=== PATIENT | male | born 1950 | race Caucasian/White ===

== ENCOUNTER → 2016-08-11 | Outpatient (CLI) | payer OTHER | LOC: KOH-I 13:41 | DX: R07.9 Chest pain, unspecified (principal); R06.02 Shortness of breath | CPT/HCPCS: 71020 ==

== ENCOUNTER → 2016-12-01 | Outpatient (CLI) | payer MEDICARE, OTHER | LOC: KOH-I 11:32 | DX: M25.561 Pain in right knee (principal); M79.604 Pain in right leg | CPT/HCPCS: 73562; 73590 ==

== ENCOUNTER → 2021-10-21 | Outpatient (CLI) | payer MEDICARE | LOC: KOH-I 11:40 | DX: L03.011 Cellulitis of right finger (principal); M79.89 Other specified soft tissue disorders | CPT/HCPCS: 73120 ==